=== PATIENT | male | born 1960 | race African-American/Black ===

== ENCOUNTER 2018-07-30 16:01 | Inpatient (IN) | payer MEDICAID, OTHER ==
[~2018-07-30] VITALS: Ht 180.3 cm; Wt 117.9 kg
[2018-07-30] MEDS ORDERED: ACETAMINOPHEN 325MG TABLET PO STA (16:49)
[2018-07-30 17:33] LABS: BASOPHILS % 0.3 % (0.0-2.0); EOSINOPHILS % 0.4 % (0.0-5.0); HEMATOCRIT. 40.1 % (42.0-52.0); HEMOGLOBIN. 13.8 g/dL (14.0-18.0); MEAN CORPUSCULAR HEMOGLOBIN 31.5 pg (28.0-32.0); MEAN CORPUSCULAR VOLUME 91.3 fL (80.0-94.0); MEAN PLATELET VOLUME 9.5 fl (7.4-10.4); MONOCYTES % 7.6 % (2.0-8.0); NEUTROPHILS % 42.7 % (40.0-76.0); PLATELET 153 x1000/uL (130-400); RED BLOOD CELL COUNT 4.39 mill/uL (4.7-6.1); RED CELL DISTRIBUTION WIDTH 13.8 % (11.6-14.6)
[2018-07-30 17:37] LABS: CHLORIDE 106 mEq/L (98-107)
[2018-07-30 17:38] LABS: INR 1.1; PROTHROMBIN TIME 11.4 sec (9.1-11.1)
[2018-07-30 17:42] LABS: ETHANOL BLOOD < 10 mg/dL
[2018-07-30] MEDS ORDERED: SODIUM CHLORIDE 0.9% 1000ML BAG (SEPSIS BOLUS) IV ONE (18:00)
[2018-07-30] MEDS ORDERED: CEFTRIAXONE 1 G PREMIX 50 ML IV ONE (18:00)
[2018-07-30 20:42] LABS: CLARITY URINE CLEAR (CLEAR); COLOR URINE YELLOW (YELLOW); KETONES URINE 1+ (NEGATIVE); LEUKOCYTE ESTERASE URINE NEGATIVE (NEGATIVE); NITRITE URINE NEGATIVE (NEGATIVE); OCCULT BLOOD URINE NEGATIVE (NEGATIVE); PH URINE 6.5 (4.5-8.0); PROTEIN URINE NEGATIVE (NEGATIVE)
[2018-07-30] MEDS ORDERED: KETOROLAC 15MG/ML VIAL IV ONE (20:45)
[2018-07-30 20:54] LABS: *AMPHETAMINES SCREEN URINE NEGATIVE (NEGATIVE); *BARBITURATES SCREEN URINE NEGATIVE (NEGATIVE); *BENZODIAZEPINES SCREEN URINE NEGATIVE (NEGATIVE); *COCAINE SCREEN URINE NEGATIVE (NEGATIVE); CANNABINOID URINE SCREEN NEGATIVE (NEGATIVE); METHADONE URINE SCREEN NEGATIVE (NEGATIVE); OPIATES URINE SCREEN PRESUMTIVE POSITIVE (NEGATIVE); PHENCYCLIDINE URINE SCREEN NEGATIVE (NEGATIVE)
[2018-07-30] MEDS ORDERED: NITROGLYCERIN 0.4MG TABLET SL SL PRN (22:15)
[2018-07-30] MEDS ORDERED: LORAZEPAM 0.5MG TABLET PO PRN (22:15)
[2018-07-30] MEDS ORDERED: IPRATROPIUM/ALBUTEROL 0.5-3(2.5)MG/3ML NEB INH PRN (22:15)
[2018-07-30] MEDS ORDERED: DIPHENHYDRAMINE 50MG/ML VIAL IV PRN (22:15)
[2018-07-30] MEDS ORDERED: NA PHOS,M-B/NA PHOS,DI-BA ENEMA 118ML PR PRN (22:15)
[2018-07-30] MEDS ORDERED: MAGNESIUM/ALUMINUM HYDROXIDE/SIMETHICONE 30ML UDC PO PRN (22:15)
[2018-07-30] MEDS ORDERED: DOCUSATE SODIUM 100MG CAPSULE PO PRN (22:15)
[2018-07-30] MEDS ORDERED: GUAIFENESIN 200MG/10ML SUGAR FREE UDC PO PRN (22:15)
[2018-07-30] MEDS ORDERED: ONDANSETRON HCL 4MG/2ML INJ IV PRN (22:15)
[2018-07-30] MEDS ORDERED: ZOLPIDEM TARTRATE 5MG TABLET PO PRN (22:15)
[2018-07-30] MEDS ORDERED: ACETAMINOPHEN 325MG TABLET PO PRN (22:15)
[2018-07-30] MEDS ORDERED: TRAMADOL 50MG TABLET PO PRN (22:15)
[2018-07-31] VITALS (7 sets, daily range): BP systolic 138–167; BP diastolic 80–102
[2018-07-31] MEDS: KETOROLAC 15MG/ML VIAL IV PRN ×3 (01:53→22:03)
[2018-07-31] MEDS: SUCRALFATE 1 G/10 ML UDC PO SCH ×4 (07:20→22:20)
[2018-07-31] MEDS: PANTOPRAZOLE SODIUM 40 MG/VIAL IV SCH (07:56)
[2018-07-31] MEDS: METOPROLOL TARTRATE 25MG TABLET PO SCH ×2 (08:00→22:26)
[2018-07-31] MEDS: ENOXAPARIN 30MG/0.3ML SYR SUBCUT SCH ×2 (08:05→22:23)
[2018-07-31] MEDS ORDERED: AMLO10TA80 PO (09:01)
[2018-07-31] MEDS ORDERED: ALBU6.7H9 INH (09:01)
[2018-07-31] MEDS ORDERED: BECL10.6 IH (09:01)
[2018-07-31] MEDS ORDERED: LOSA100T14 PO (09:01)
[2018-07-31] MEDS ORDERED: HYDR-4009 MT (09:01)
[2018-07-31] MEDS ORDERED: GABA-290 MT (09:01)
[2018-07-31 10:24] LABS: BASOPHILS % 0.2 % (0.0-2.0); HEMATOCRIT. 38.8 % (42.0-52.0); HEMOGLOBIN. 13.1 g/dL (14.0-18.0); LYMPHOCYTES % 55.2 % (20.0-50.0); MEAN CORPUSCULAR HEMOGLOBIN 30.9 pg (28.0-32.0); MEAN CORPUSCULAR VOLUME 91.5 fL (80.0-94.0); MEAN PLATELET VOLUME 10.3 fl (7.4-10.4); MONOCYTES % 7.4 % (2.0-8.0); NEUTROPHILS % 36.2 % (40.0-76.0); PLATELET 157 x1000/uL (130-400); RED BLOOD CELL COUNT 4.23 mill/uL (4.7-6.1); RED CELL DISTRIBUTION WIDTH 13.6 % (11.6-14.6)
[2018-07-31 10:28] LABS: CHLORIDE 106 mEq/L (98-107)
[2018-07-31] MEDS: SODIUM CHLORIDE 0.9% 1,000 ML IV SCH ×3 (12:27→19:07)
[2018-07-31] MEDS: CLONIDINE 0.1MG TABLET PO PRN (22:21)
[2018-08-01] VITALS (7 sets, daily range): BP systolic 119–152; BP diastolic 59–92
[2018-08-01] MEDS: SODIUM CHLORIDE 0.9% 1,000 ML IV SCH ×2 (04:50→08:41)
[2018-08-01] MEDS: SUCRALFATE 1 G/10 ML UDC PO SCH ×2 (06:51→18:40)
[2018-08-01 07:13] LABS: CHLORIDE 107 mEq/L (98-107)
[2018-08-01] MEDS: METOPROLOL TARTRATE 25MG TABLET PO SCH (08:40)
[2018-08-01] MEDS: ENOXAPARIN 30MG/0.3ML SYR SUBCUT SCH (08:40)
[2018-08-01] MEDS: PANTOPRAZOLE SODIUM 40 MG/VIAL IV SCH (08:40)
[2018-08-01] MEDS: KETOROLAC 15MG/ML VIAL IV PRN (08:40)
[2018-08-01] MEDS: CLONIDINE 0.1MG TABLET PO PRN (13:55)
== END 2018-08-01 21:25 | disposition home or self-care (01) | DRG 282 ==
LOC: ER 16:01 → EDBEDREQ 21:56 → EDBEDREQSVC 21:56 → EDBEDREQTM 21:56 → 6EST 22:11 → EDBEDREQTM 22:19 → EDBEDREQ 22:19 → ENRESERV 23:10 → UNDOADMIN 07-31 01:06 → 6EST 07-31 01:06
PROVIDERS: ADMIT Internal Medicine; ATTEND Internal Medicine
DX: K85.90 Acute pancreatitis without necrosis or infection, unspecified (principal); E66.9 Obesity, unspecified; E86.0 Dehydration; K29.70 Gastritis, unspecified, without bleeding; I10 Essential (primary) hypertension; Z82.49 Family history of ischemic heart disease and other diseases of the circulatory system; Z68.36 Body mass index [BMI] 36.0-36.9, adult; Z88.8 Allergy status to other drugs, medicaments and biological substances; Z91.041 Radiographic dye allergy status
CPT/HCPCS: 36415; 71045; 74176; 80061; 80305; 83036; 83605; 83880; 84484; 86703; 87804; 93005; 93970; 96365; 96375; 99285; C9113; G0482; J0696; J1650; J1885; J7030

== ENCOUNTER 2020-12-08 00:18 | Inpatient (IN) | payer OTHER, MEDICAID ==
[2020-12-08] VITALS (9 sets, daily range): BP systolic 17–158; BP diastolic 64–97
[~2020-12-08] VITALS: Ht 177.8 cm; Wt 128.8 kg
[~2020-12-08 00:18] MED LIST: ALBU6.7H9 INH; AMLO10TA80 PO; BECL10.6 IH; GABA-290 MT; HYDR-4009 MT; LOSA100T32 PO
[2020-12-08] MEDS ORDERED: DIPHENHYDRAMINE 50MG/ML VIAL IV ONE (00:45)
[2020-12-08] MEDS ORDERED: FAMOTIDINE 20MG/2ML VIAL IV ONE (00:45)
[2020-12-08] MEDS ORDERED: DEXAMETHASONE 10 MG/ML VIAL IV ONE (00:45)
[2020-12-08 00:55] LABS: BASOPHILS % 0.5 % (0.0-2.0); EOSINOPHILS % 0.6 % (0.0-5.0); HEMOGLOBIN. 13.7 g/dL (14.0-18.0); LYMPHOCYTES % 66.3 % (20.0-50.0); MEAN CORPUSCULAR HEMOGLOBIN 30.8 pg (28.0-32.0); MEAN CORPUSCULAR VOLUME 89.8 fL (80.0-94.0); MEAN PLATELET VOLUME 9.4 fl (7.4-10.4); MONOCYTES % 5.3 % (2.0-8.0); NEUTROPHILS % 27.3 % (40.0-76.0); PLATELET 188 x1000/uL (130-400); RED BLOOD CELL COUNT 4.46 mill/uL (4.7-6.1); RED CELL DISTRIBUTION WIDTH 13.4 % (11.6-14.6)
[2020-12-08 00:58] LABS: CHLORIDE 107 mEq/L (98-107)
[2020-12-08] MEDS ORDERED: KETOROLAC 30MG/ML VIAL IV ONE (01:15)
[2020-12-08] MEDS ORDERED: ONDANSETRON HCL 4MG/2ML INJ IV PRN ×2 (09:15→09:30)
[2020-12-08] MEDS ORDERED: DEXTROSE 50% WATER 50ML SYRINGE IV PRN (09:30)
[2020-12-08] MEDS: ACETAMINOPHEN 325MG TABLET PO PRN ×2 (10:06→20:15)
[2020-12-08] MEDS: FAMOTIDINE 20MG TABLET PO SCH ×2 (10:06→20:15)
[2020-12-08] MEDS: METHYLPREDNISOLONE SOD SUCC 40 MG/ML VIAL IV SCH ×2 (10:06→16:51)
[2020-12-08] MEDS: BLOOD SUGAR DIAGNOSTIC STRIP TEST SCH ×3 (11:52→20:01)
[2020-12-08] MEDS: INSULIN LISPRO 100 UNITS/ML SUBCUT SCH ×3 (11:53→20:15)
[2020-12-08] MEDS ORDERED: TRAZ-252 MT (12:30)
[2020-12-08] MEDS ORDERED: AMLODIPINE 10MG TABLET PO NR (17:15)
[2020-12-08] MEDS: CLONIDINE 0.1MG TABLET PO PRN (18:37)
[2020-12-09] VITALS (13 sets, daily range): BP systolic 124–163; BP diastolic 67–95
[2020-12-09] MEDS: ACETAMINOPHEN 325MG TABLET PO PRN ×3 (02:47→23:35)
[2020-12-09] MEDS: METHYLPREDNISOLONE SOD SUCC 40 MG/ML VIAL IV SCH ×3 (02:47→17:00)
[2020-12-09] MEDS: BLOOD SUGAR DIAGNOSTIC STRIP TEST SCH ×4 (06:25→20:56)
[2020-12-09 07:44] LABS: BASOPHILS % 0.2 % (0.0-2.0); HEMATOCRIT. 38.5 % (42.0-52.0); HEMOGLOBIN. 12.9 g/dL (14.0-18.0); LYMPHOCYTES % 21.3 % (20.0-50.0); MEAN CORPUSCULAR HEMOGLOBIN 30.7 pg (28.0-32.0); MEAN CORPUSCULAR VOLUME 91.8 fL (80.0-94.0); MEAN PLATELET VOLUME 9.5 fl (7.4-10.4); NEUTROPHILS % 75.5 % (40.0-76.0); PLATELET 164 x1000/uL (130-400); RED BLOOD CELL COUNT 4.19 mill/uL (4.7-6.1); RED CELL DISTRIBUTION WIDTH 14.3 % (11.6-14.6)
[2020-12-09 07:56] LABS: CHLORIDE 108 mEq/L (98-107)
[2020-12-09] MEDS: INSULIN LISPRO 100 UNITS/ML SUBCUT SCH ×4 (08:22→21:04)
[2020-12-09] MEDS: FAMOTIDINE 20MG TABLET PO SCH ×2 (08:22→21:02)
[2020-12-09] MEDS: AMLODIPINE 10MG TABLET PO SCH (08:23)
[2020-12-09] MEDS ORDERED: P50 MT (09:43)
[2020-12-09] MEDS ORDERED: FURO-152 MT (09:44)
[2020-12-09] MEDS: CLONIDINE 0.1MG TABLET PO PRN (16:09)
[2020-12-09] MEDS ORDERED: ACETAMINOPHEN 650MG/20.3ML UDC PO NR (16:35)
[2020-12-09] MEDS: ALBUTEROL (0.5%) 2.5MG/0.5ML NEB HHN SCH (20:55)
[2020-12-10] VITALS (7 sets, daily range): BP systolic 126–155; BP diastolic 76–118
[2020-12-10] MEDS: ALBUTEROL (0.5%) 2.5MG/0.5ML NEB HHN SCH ×2 (01:09→08:41)
[2020-12-10] MEDS: METHYLPREDNISOLONE SOD SUCC 40 MG/ML VIAL IV SCH ×2 (01:30→10:57)
[2020-12-10] MEDS: BLOOD SUGAR DIAGNOSTIC STRIP TEST SCH ×2 (07:05→11:37)
[2020-12-10] MEDS: FAMOTIDINE 20MG TABLET PO SCH (08:07)
[2020-12-10] MEDS: AMLODIPINE 10MG TABLET PO SCH (08:08)
[2020-12-10] MEDS: INSULIN LISPRO 100 UNITS/ML SUBCUT SCH ×2 (08:12→11:37)
[2020-12-10] MEDS: ACETAMINOPHEN 325MG TABLET PO PRN (11:04)
== END 2020-12-10 13:43 | disposition home or self-care (01) | DRG 916 ==
LOC: ER 00:18 → 3WST 04:06 → EDBEDREQSVC 04:08 → EDBEDREQTM 04:08 → EDBEDREQ 04:08 → ENRESERV 07:20
PROVIDERS: ADMIT Family Medicine; ATTEND Family Medicine
DX: T78.3XXA Angioneurotic edema, initial encounter (principal); Z68.41 Body mass index [BMI] 40.0-44.9, adult; T78.2XXA Anaphylactic shock, unspecified, initial encounter; I10 Essential (primary) hypertension; E11.9 Type 2 diabetes mellitus without complications; E66.9 Obesity, unspecified; Z91.041 Radiographic dye allergy status; Z91.013 Allergy to seafood; Z88.5 Allergy status to narcotic agent; Z79.899 Other long term (current) drug therapy; Z79.52 Long term (current) use of systemic steroids; Z91.010 Allergy to peanuts
CPT/HCPCS: 36415; 71045; 80048; 80053; 82962; 83036; 85025; 86850; 86900; 93005; 94640; 99291; C1893; J1100; J1200; J1815; J1885; J2920; J3490

== ENCOUNTER 2025-03-30 13:49 | Emergency (ER) | payer OTHER, MEDICAID ==
[~2025-03-30] VITALS: Ht 177.8 cm; Wt 117.0 kg
[~2025-03-30 13:49] MED LIST changes: +ALBU6.7H3 INH; -ALBU6.7H9 INH; +FURO-152 MT; -LOSA100T32 PO; +P50 MT; +TRAZ-252 MT
[2025-03-30 14:42] LABS: BASOPHILS % 0.3 % (0.0-2.0); EOSINOPHILS % 0.4 % (0.0-5.0); HEMATOCRIT. 39.6 % (42.0-52.0); HEMOGLOBIN. 13.2 g/dL (14.0-18.0); LYMPHOCYTES % 60.5 % (20.0-50.0); MEAN PLATELET VOLUME 9.2 fl (7.4-10.4); MONOCYTES % 6.5 % (2.0-8.0); NEUTROPHILS % 32.3 % (40.0-76.0); PLATELET 159 x1000/uL (130-400); RED BLOOD CELL COUNT 4.36 mill/uL (4.7-6.1); RED CELL DISTRIBUTION WIDTH 13.9 % (11.6-14.6)
[2025-03-30] MEDS: PREDNISONE 20MG TABLET PO ONE (14:42)
[2025-03-30] MEDS: ASPIRIN 81MG TABLET PO ONE (14:43)
[2025-03-30 14:59] LABS: CREATININE 0.9 mg/dL (0.6-1.3); TROPONIN I HIGH SENSITIVITY 11 ng/L (3.0-53); UREA NITROGEN BLOOD 13 mg/dL (9-23)
[2025-03-30] MEDS: IPRATROPIUM BROMIDE (0.02%) 0.5MG/2.5ML NEB HHN SCH (15:03)
[2025-03-30] MEDS: ALBUTEROL (0.083%) 2.5MG/3ML NEB HHN SCH (15:03)
[2025-03-30 15:11] VITALS: PULSE 67; RESP 18; O2SAT 98
[2025-03-30 17:04] LABS: TROPONIN I HIGH SENSITIVITY 11 ng/L (3.0-53)
[2025-03-30] MEDS ORDERED: ALBU90AE INH (17:08)
[2025-03-30] MEDS ORDERED: P50 MT (17:08)
[2025-03-30 17:43] VITALS: BP 144/80; PULSE 63; RESP 15; TEMP 36.7; O2SAT 99
== END 2025-03-30 17:45 | disposition home or self-care (01) ==
LOC: ER 13:49
DX: J45.901 Unspecified asthma with (acute) exacerbation (principal); I10 Essential (primary) hypertension; Z79.899 Other long term (current) drug therapy; Z88.5 Allergy status to narcotic agent; Z88.8 Allergy status to other drugs, medicaments and biological substances
CPT/HCPCS: 99285; 71045; 80048; 83880; 85025; 84484; 36415; 93005; 94644; J7512; 94070; 94640; 94664; 98960

== ENCOUNTER 2025-05-24 14:45 | Emergency (ER) | payer OTHER, MEDICAID ==
[~2025-05-24] VITALS: Ht 177.8 cm; Wt 100.0 kg
[~2025-05-24 14:45] MED LIST changes: +ALBU90AE INH
[2025-05-24 14:56] VITALS: O2SAT 99
[2025-05-24 18:39] LABS: CREATININE 0.9 mg/dL (0.6-1.3); UREA NITROGEN BLOOD 7 mg/dL (9-23)
[2025-05-24] MEDS ORDERED: NAPR275T96 MT (18:47)
[2025-05-24] MEDS ORDERED: ACET-2708 MT (18:47)
[2025-05-24 18:53] LABS: BASOPHILS % 0.1 % (0.0-2.0); EOSINOPHILS % 1.7 % (0.0-5.0); HEMATOCRIT. 40.3 % (42.0-52.0); HEMOGLOBIN. 13.4 g/dL (14.0-18.0); LYMPHOCYTES % 64.0 % (20.0-50.0); MEAN PLATELET VOLUME 9.3 fl (7.4-10.4); MONOCYTES % 9.1 % (2.0-8.0); NEUTROPHILS % 25.1 % (40.0-76.0); PLATELET 143 x1000/uL (130-400); RED BLOOD CELL COUNT 4.38 mill/uL (4.7-6.1); RED CELL DISTRIBUTION WIDTH 14.1 % (11.6-14.6)
[2025-05-24] MEDS: KETOROLAC 15MG/ML VIAL IM ONE (18:53)
[2025-05-24] MEDS: ACETAMINOPHEN 325MG TABLET PO ONE (18:53)
[2025-05-24 19:08] VITALS: BP 139/77; PULSE 60; RESP 16; TEMP 37; O2SAT 100
== END 2025-05-24 19:09 | disposition home or self-care (01) ==
LOC: ER 14:56
DX: M54.10 Radiculopathy, site unspecified (principal); I10 Essential (primary) hypertension; J45.909 Unspecified asthma, uncomplicated; Z79.899 Other long term (current) drug therapy; Z88.5 Allergy status to narcotic agent; Z88.8 Allergy status to other drugs, medicaments and biological substances
CPT/HCPCS: 99285; 93971; 80048; 85025; 36415; 73502; 72100; 96372; J1885